=== PATIENT | male | born 1960 | race American Indian/Alaskan Native ===

== ENCOUNTER 2018-05-20 13:10 | Emergency (ER) | payer BC, OTHER ==
[~2018-05-20] VITALS: Ht 175.3 cm; Wt 106.6 kg
[~2018-05-20 13:10] MED LIST: GLIPIZIDE XL5 MG PO; JANUMET 50-5001 EACH PO; LISINOPRIL10 MG PO; NORCO 5-325 TA1 EACH PO; PENICILLIN V P500 MG PO
[2018-05-20] MEDS ORDERED: LANTUS100 UNITS/ SUB-Q (13:29)
[2018-05-20] MEDS ORDERED: CIPRO500 MG PO (15:49)
== END 2018-05-20 15:49 | disposition home or self-care (01) ==
LOC: ED 13:10
DX: N39.0 Urinary tract infection, site not specified (principal); R05 Cough; Z79.899 Other long term (current) drug therapy; Z79.4 Long term (current) use of insulin
CPT/HCPCS: 71045; 80053; 81001; 83605; 83690; 85025; 96361; 96374; 99283; J2405; J7030

== ENCOUNTER 2018-05-23 02:11 | Emergency (ER) | payer BC, OTHER ==
[~2018-05-23] VITALS: Ht 175.3 cm; Wt 106.6 kg
[~2018-05-23 02:11] MED LIST changes: +CIPRO500 MG PO; +LANTUS100 UNITS/ SUB-Q
[2018-05-23] MEDS ORDERED: NORCO 5-325 TA1 EACH PO (02:45)
== END 2018-05-23 03:42 | disposition home or self-care (01) ==
LOC: ED 02:11
DX: S29.011A Strain of muscle and tendon of front wall of thorax, initial encounter (principal); E11.9 Type 2 diabetes mellitus without complications; Z79.84 Long term (current) use of oral hypoglycemic drugs; Z79.899 Other long term (current) drug therapy; X58.XXXA Exposure to other specified factors, initial encounter
CPT/HCPCS: 71046; 96372; 99283; J1885